=== PATIENT | male | born 1985 | race Caucasian/White ===

== ENCOUNTER 2022-06-09 13:27 | Emergency (ER) | payer SELFPAY ==
[~2022-06-09] VITALS: Ht 188 cm; Wt 95.0 kg
--- NOTE | 2022-06-09 13:37 | ED Psychosocial ---
General Stated Complaint: PSYCHE Source: patient, EMS Exam Limitations: no limitations (MARCUS AGUIRRE MD) History of Present Illness Date Seen by Provider: Jun 09, 2022 Time Seen by Provider: 13:32 Initial Comments 36-year-old male with unknown past medical history, he believes he is "supposed to be on a sedative" but he has not been taking coming in via EMS from home. He was outside standing outside and was confused so he called 911. He says he mostly does not know what is going on and is confused. EMS reports he was tangential, at 1 point barked at them. He is unable to answer if he has used drugs. Denies any suicidal or homicidal ideation. States he is drinking beer before and smokes cigarettes. Denies any auditory or visual hallucinations. When going through a comprehensive review of systems, he states that he "may have some chest pain". He was unable to elaborate on that further. Of note, patient looking around the room potentially attending to stimuli. Sitting on the edge of the bed initially, asking for the door to please not be shut. (MARCUS AGUIRRE MD) Allergies and Home Medications Allergies Coded Allergies: No Known Drug Allergies (Unverified , 06/09/22) Patient Home Medication List Home Medication List Reviewed: Yes (MARCUS AGUIRRE MD) Review of Systems Constitutional: dizziness EENTM: no symptoms reported Respiratory: no symptoms reported Cardiovascular: chest pain Gastrointestinal: no symptoms reported Genitourinary: no symptoms reported Musculoskeletal: no symptoms reported Skin: no symptoms reported Psychiatric/Neurological: See HPI (MARCUS AGUIRRE MD) All Other Systems Reviewed Negative Unless Noted: Yes (MARCUS AGUIRRE MD) Past Ymowjif-Ctexey-Zpxqgc Hx Patient Social History Tobacco Use?: Yes Tobacco type used: Cigarettes Substance use?: No Alcohol Use?: Yes Alcohol type: Beer (MARCUS AGUIRRE MD) Past Medical History Surgeries: No (MARCUS AGUIRRE MD) Physical Exam Vital Signs - First Documented 06/09/22 13:27 Temp 36.3 Pulse 96 Resp 18 B/P (MAP) 150/95 (113) Pulse Ox 95 O2 Delivery Room Air (ZOLTAN HUNT APRN) Capillary Refill : (MARCUS AGUIRRE MD) Height, Weight, BMI Height: '" Weight: lbs. oz. kg; BMI Method: General Appearance: WD/WN, no apparent distress HEENT: PERRL/EOMI, normal ENT inspection, pharynx normal Neck: non-tender, full range of motion, supple, normal inspection Respiratory: chest non-tender, lungs clear, normal breath sounds, no respiratory distress, no accessory muscle use Cardiovascular: regular rate, rhythm, no edema, no murmur Gastrointestinal: normal bowel sounds, non tender, soft; No distended, No guarding, No rebound Extremities: normal range of motion, non-tender, normal inspection, no pedal edema, no calf tenderness, normal capillary refill Neurologic/Psychiatric: no motor/sensory deficits, alert, other (Sitting up straight, looking around the room, appears anxious but not agitated, answers q uestions, but not always making sense, denies SI or HI, denies hallucinations) Behavior/Eye Contact: cooperative Skin: normal color, warm/dry Lymphatic: no adenopathy (MARCUS AGUIRRE MD) Neurologic/Psychiatric: other (Sitting up straight, looking around the room, appears anxious but not agitated, answers questions, but not always making sense, denies SI or HI, denies hallucinations) (NAOMI HAMILTON DO) Progress/Results/Core Measures Results/Orders Lab Results Laboratory Tests Test 06/09/22 13:56 06/09/22 14:00 06/09/22 15:10 Range/Units White Blood Count 15.5 H 4.3-11.0 10^3/uL Red Blood Count 5.24 4.30-5.52 10^6/uL Hemoglobin 16.1 13.3-17.7 g/dL Hematocrit 45 40-54 % Mean Corpuscular Volume 87 80-99 fL Mean Corpuscular Hemoglobin 31 25-34 pg Mean Corpuscular Hemoglobin Concent 36 32-36 g/dL Red Cell Distribution Width 12.6 10.0-14.5 % Platelet Count 258 130-400 10^3/uL Mean Platelet Volume 11.7 9.0-12.2 fL Immature Granulocyte % (Auto) 1 % Neutrophils (%) (Auto) 77 H 42-75 % Lymphocytes (%) (Auto) 16 12-44 % Monocytes (%) (Auto) 5 0-12 % Eosinophils (%) (Auto) 1 0-10 % Basophils (%) (Auto) 1 0-10 % Neutrophils # (Auto) 11.9 H 1.8-7.8 10^3/uL Lymphocytes # (Auto) 2.5 1.0-4.0 10^3/uL Monocytes # (Auto) 0.8 0.0-1.0 10^3/uL Eosinophils # (Auto) 0.1 0.0-0.3 10^3/uL Basophils # (Auto) 0.1 0.0-0.1 10^3/uL Immature Granulocyte # (Auto) 0.1 0.0-0.1 10^3/uL Neutrophils % (Manual) 74 % Lymphocytes % (Manual) 20 % Monocytes % (Manual) 6 % Eosinophils % (Manual) 0 % Basophils % (Manual) 0 % Band Neutrophils 0 % Blood Morphology Comment NORMAL Sodium Level 137 135-145 MMOL/L Potassium Level 3.9 3.6-5.0 MMOL/L Chloride Level 101 98-107 MMOL/L Carbon Dioxide Level 17 L 21-32 MMOL/L Anion Gap 19 H 5-14 MMOL/L Blood Urea Nitrogen 6 L 7-18 MG/DL Creatinine 0.87 0.60-1.30 MG/DL Estimat Glomerular Filtration Rate 114 BUN/Creatinine Ratio 7 Glucose Level 89 70-105 MG/DL Calcium Level 10.2 H 8.5-10.1 MG/DL Corrected Calcium 8.5-10.1 MG/DL Total Bilirubin 0.5 0.1-1.0 MG/DL Aspartate Amino Transf (AST/SGOT) 22 5-34 U/L Alanine Aminotransferase (ALT/SGPT) 28 0-55 U/L Alkaline Phosphatase 67 40-136 U/L Troponin I < 0.028 <0.028 NG/ML Total Protein 8.1 6.4-8.2 GM/DL Albumin 4.9 H 3.2-4.5 GM/DL Salicylates Level < 5.0 L 5.0-20.0 MG/DL Acetaminophen Level < 10 L 10-30 UG/ML Serum Alcohol < 10 <10 MG/DL Urine Color YELLOW Urine Clarity CLEAR Urine pH 5.5 5-9 Urine Specific [place] 1.015 L 1.016-1.022 Urine Protein NEGATIVE NEGATIVE Urine Glucose (UA) NEGATIVE NEGATIVE Urine Ketones 2+ H NEGATIVE Urine Nitrite NEGATIVE NEGATIVE Urine Bilirubin NEGATIVE NEGATIVE Urine Urobilinogen 0.2 < = 1.0 MG/DL Urine Leukocyte Esterase NEGATIVE NEGATIVE Urine RBC (Auto) NEGATIVE NEGATIVE Urine RBC NONE /HPF Urine WBC NONE /HPF Urine Squamous Epithelial Cells RARE /HPF Urine Crystals NONE /LPF Urine Bacteria NEGATIVE /HPF Urine Casts NONE /LPF Urine Mucus NEGATIVE /LPF Urine Culture Indicated NO Urine Opiates Screen NEGATIVE NEGATIVE Urine Oxycodone Screen NEGATIVE NEGATIVE Urine Methadone Screen NEGATIVE NEGATIVE Urine Propoxyphene Screen NEGATIVE NEGATIVE Urine Barbiturates Screen NEGATIVE NEGATIVE Ur Tricyclic Antidepressants Screen NEGATIVE NEGATIVE Urine Phencyclidine Screen NEGATIVE NEGATIVE Urine Amphetamines Screen NEGATIVE NEGATIVE Urine Methamphetamines Screen NEGATIVE NEGATIVE Urine Benzodiazepines Screen NEGATIVE NEGATIVE Urine Cocaine Screen NEGATIVE NEGATIVE Urine Cannabinoids Screen NEGATIVE NEGATIVE SARS-CoV-2 RNA (RT-PCR) Not Detected Not Detecte (ZOLTAN HUNT APRN) Medications Given in ED Current Medications Medications Dose Ordered Sig/Jayne Route Start Time Stop Time Status Last Admin Dose Admin Lorazepam 0.5 mg ONCE ONCE PO 06/09/22 13:45 06/09/22 13:46 DC 06/09/22 14:17 0.5 MG Olanzapine 10 mg ONCE ONCE PO 06/09/22 13:45 06/09/22 13:46 DC 06/09/22 14:16 10 MG (ZOLTAN HUNT APRN) Vital Signs/I&O 06/09/22 13:27 Temp 36.3 Pulse 96 Resp 18 B/P (MAP) 150/95 (113) Pulse Ox 95 O2 Delivery Room Air (ZOLTAN HUNT APRN) Progress Progress Note : Progress Note 36-year-old male brought in for psychiatric evaluation. ABCs were intact and vitals were stable on presentation. He does not really have any complaints on arrival. EKG with no acute ischemic changes. IV was placed and basic labs obtained and are essentially unremarkable. Chest x-ray also unremarkable. UDS with no findings. Patient was cleared for psychiatric evaluation. They recommended inpatient placement under involuntary status. (MARCUS AGUIRRE MD) Progress Note : Progress Note Patient accepted to [facility] at 2126. As this is an involuntary admission/transfer, the fire investigator's department will provide transport. They currently do not have availability for transport until the morning. (ZOLTAN HUNT APRN) Progress Note : Progress Note 2300--ASSUMED CARE OF PT AT END OF SHIFT, FROM [employer]. PT HAS BEEN EVALUATED BY [facility], AND HAS BEEN DETERMINED TO NEED INVOLUNTARY ADMIT, AND I HAVE BEEN ADVISED THAT PAPERS WILL BE FILED BY THE END OF THE DAY TOMORROW. [facility] HAS BEEN CONTACTED PRIOR TO MY ARRIVAL AND THEY WILL TRANSPORT PT IN THE MORNING. PT IS RESTING QUIETLY AT THIS TIME, AND HAS BEEN COOPERATIVE DURING ER STAY. 0600--PT HAS RESTED QUIETLY/SLEPT FOR ENTIRE NIGHT. VITALS STABLE. CARE TURNED OVER TO DR. MCDONALD AT SHIFT CHANGE. (NAOMI HAMILTON DO) Initial ECG Impression Date: Jun 09, 2022 Initial ECG Impression Time: 13:56 Initial ECG Rate: 82 Initial ECG Rhythm: Normal Sinus Comment Narrow QRS, normal axis, no significant ST changes or T wave abnormalities, QTC 427 (MARCUS AGUIRRE MD) Diagnostic Imaging Diagonstic Imaging: Xray Plain Films/CT/US/NM/MRI: chest Comments [facility] [place], [place] NAME: JULIANNE CANTU [facility] REC#: [id number] PT STATUS: REG ER : 1985 PHYSICIAN: MARCUS AGUIRRE MD ADMIT DATE: 06/09/22/ER Draft Date of Exam:06/09/22 CHEST 1 VIEW, AP/PA ONLY INDICATION: Chest pain. TECHNIQUE: Frontal chest obtained at 01:34 p.m. FINDINGS: Heart and mediastinal silhouette are normal in appearance. The lungs are clear. There is no pneumothorax or pleural fluid. IMPRESSION: Negative chest. Dictated on workstation # [id number] Dict: 06/09/22 1410 Trans: 06/09/22 1413 [id number] Interpreted by: HANG VALLADARES MD Electronically signed by: (MARCUS AGUIRRE MD) Departure Impression Primary Impression: Disorganized behavior Additional Impression: Paranoia Disposition: 30 STILL A PATIENT Condition: Stable MARCUS AGUIRRE MD Jun 09, 2022 13:37 ZOLTAN HUNT APRN Jun 09, 2022 21:45 NAOMI HAMILTON DO Jun 10, 2022 00:48
[2022-06-09] MEDS ORDERED: OLANZapine 5 MG ODT (ZyPREXA ZYDIS) PO ONE (13:45)
[2022-06-09] MEDS ORDERED: NS IV 1000 ML 1,000 ML IV SCH (13:45)
[2022-06-09] MEDS ORDERED: LORazepam 0.5 MG (ATIVAN) TABLET PO ONE (13:45)
[2022-06-09 14:03] LABS: BASOPHILS # (AUTO) 0.1 10^3/uL (0.0-0.1); BASOPHILS % (AUTO) 1 % (0-10); EOSINOPHILS # (AUTO) 0.1 10^3/uL (0.0-0.3); EOSINOPHILS % (AUTO) 1 % (0-10); HEMATOCRIT 45 % (40-54); HEMOGLOBIN 16.1 g/dL (13.3-17.7); LYMPHOCYTES # (AUTO) 2.5 10^3/uL (1.0-4.0); LYMPHOCYTES % (AUTO) 16 % (12-44); MEAN CORPUSCULAR HEMOGLOBIN 31 pg (25-34); MEAN CORPUSCULAR HGB CONC 36 g/dL (32-36); MEAN CORPUSCULAR VOLUME 87 fL (80-99); MEAN PLATELET VOLUME 11.7 fL (9.0-12.2); MONOCYTES # (AUTO) 0.8 10^3/uL (0.0-1.0); MONOCYTES % (AUTO) 5 % (0-12); NEUTROPHILS # (AUTO) 11.9 10^3/uL (1.8-7.8); NEUTROPHILS % (AUTO) 77 % (42-75); PLATELET COUNT 258 10^3/uL (130-400); WHITE BLOOD COUNT 15.5 10^3/uL (4.3-11.0)
[2022-06-09 14:07] LABS: BILIRUBIN,URINE NEGATIVE (NEGATIVE); CLARITY,URINE CLEAR; COLOR,URINE YELLOW; GLUCOSE, URINE (UA) NEGATIVE (NEGATIVE); KETONES,URINE 2+ (NEGATIVE); LEUKOCYTE ESTERASE ,URINE NEGATIVE (NEGATIVE); NITRITE,URINE NEGATIVE (NEGATIVE); PH,URINE 5.5 (5-9); PROTEIN,URINE NEGATIVE (NEGATIVE)
--- NOTE | 2022-06-09 14:13 | Diagnostic Imaging Report ---
INDICATION: Chest pain. TECHNIQUE: Frontal chest obtained at 01:34 p.m. FINDINGS: Heart and mediastinal silhouette are normal in appearance. The lungs are clear. There is no pneumothorax or pleural fluid. IMPRESSION: Negative chest. Dictated by: Dictated on workstation # [id number]
[2022-06-09 14:15] LABS: ALBUMIN 4.9 GM/DL (3.2-4.5); CHLORIDE 101 MMOL/L (98-107); POTASSIUM 3.9 MMOL/L (3.6-5.0); SODIUM 137 MMOL/L (135-145)
[2022-06-09 14:15] LABS: BACTERIA,URINE NEGATIVE /HPF; SQUAMOUS EPITHELIAL CELL,UR RARE /HPF
[2022-06-09 14:16] LABS: CALCIUM 10.2 MG/DL (8.5-10.1)
[2022-06-09 14:18] LABS: GLUCOSE 89 MG/DL (70-105); TOTAL PROTEIN 8.1 GM/DL (6.4-8.2)
[2022-06-09 14:19] LABS: BILIRUBIN,TOTAL 0.5 MG/DL (0.1-1.0); CARBON DIOXIDE 17 MMOL/L (21-32)
[2022-06-09 14:21] LABS: ALKALINE PHOSPHATASE 67 U/L (40-136); CREATININE SERUM 0.87 MG/DL (0.60-1.30); GFR ESTIMATED 114
[2022-06-09 14:23] LABS: BUN/CREATININE RATIO 7
[2022-06-09 14:23] LABS: AMPHETAMINE SCREEN, URINE NEGATIVE (NEGATIVE); BARBITURATE SCREEN URINE NEGATIVE (NEGATIVE); BENZODIAZEPINES SCREEN URINE NEGATIVE (NEGATIVE); CANNABINOID SCREEN, URINE NEGATIVE (NEGATIVE); COCAINE SCREEN URINE NEGATIVE (NEGATIVE); METHADONE STAT NEGATIVE (NEGATIVE); OPIATE SCREEN URINE NEGATIVE (NEGATIVE); OXYCODONE STAT NEGATIVE (NEGATIVE); PROPOXYPHENE STAT NEGATIVE (NEGATIVE); TRICYCLIC ANTIDEPRESSANTS SCRE NEGATIVE (NEGATIVE)
[2022-06-09 14:24] LABS: ALANINE AMINOTRANSFERASE 28 U/L (0-55); SALICYLATE < 5.0 MG/DL (5.0-20.0)
[2022-06-09 14:26] LABS: BAND NEUTROPHILS 0 %; BASOPHILS % (MANUAL) 0 %; EOSINOPHILS % (MANUAL) 0 %; LYMPHOCYTES % (MANUAL) 20 %; MONOCYTES % (MANUAL) 6 %; NEUTROPHILS % (MANUAL) 74 %; RBC MORPH NORMAL
[2022-06-09 14:41] LABS: ACETAMINOPHEN < 10 UG/ML (10-30)
[2022-06-10 17:37] VITALS: BP 117/82
== END 2022-06-10 17:37 ==
LOC: EDUNIT# 13:27 → ER 13:30
DX: F22 Delusional disorders (principal); F69 Unspecified disorder of adult personality and behavior; F17.210 Nicotine dependence, cigarettes, uncomplicated; Z20.822 Contact with and (suspected) exposure to COVID-19
CPT/HCPCS: 71045; 80053; 80306; 81000; 84484; 85007; 85027; 87636; 93005; 93041; 99283; G0480 ×3; 36415; 80320; 80329